=== PATIENT | female | born 1960 | race Caucasian/White ===

== ENCOUNTER → 2019-06-29 17:04 | Outpatient (CLI) | payer BC, SELFPAY ==
--- NOTE | ~2019-06-29 | MM_ITS ---
EXAMINATION: MM screening [facility] BI w sheila HISTORY: Screening mammogram TECHNIQUE: Craniocaudal and mediolateral oblique 3-D tomosynthesis images were obtained and synthetic 2-D images were generated. CAD analysis was submitted and interpreted. COMPARISON: 12/23/2017, 11/29/2016, 12/12/2015 BREAST PARENCHYMAL COMPOSITION: The breasts are almost entirely fatty. FINDINGS: Again seen are stable focal asymmetries in the middle third of the central right breast and posterior third of the upper outer quadrant of the left breast. There is no evidence of suspicious m ass, calcification, or architectural distortion to suggest malignancy in either breast. There has bee n no suspicious interval change. IMPRESSION: 1. No mammographic evidence of malignancy. 2. Recommend routine screening mammography in one year. BI-RADS Category 2: Benign finding(s). Reviewed, dictated and finalized at location A.
== END ==
PROVIDERS: Visit Provider Family Medicine
DX: Z12.31 Encounter for screening mammogram for malignant neoplasm of breast (principal)
CPT/HCPCS: 77063; 77067

== ENCOUNTER 2020-02-26 14:30 | Outpatient (RCR) | payer BC, SELFPAY ==
[2020-01-31 14:24] VITALS: BP_SYST 155
--- NOTE | 2020-01-31 15:51 | PTOPEVAL ---
Thank you for referring Whitley Cruz to [facility].? The patient is scheduled to be seen for therapy? 2 x/week for 8 weeks. Please review, sign, date and return this plan of care VINAY. I agree with and certify that the following plan of care is medically necessary. Referring Physician Date Attending Provider: Chirag Rivera PA-C Referring Provider: EddPT Outpatient Evaluation Start: 01/31/20 14:23 Freq: Status: Active Protocol: Document 01/31/20 14:24 KYLAH (Rec: 01/31/20 15:14 KYLAH [id number]) Therapy Assessment Status Assessment Status Assessment Status Evaluation Outpatient Past Medical History Past Medical History Source of Past Medical History Patient,Recalled from Previous Visit, Confirmed with Patient /Family Neurological History Hx Neurological Disorders No Significant History Cardiovascular History Hx Cardiac Disorders No Significant History Respiratory History Hx Sleep Apnea Yes Gastrointestinal History Hx Gall Bladder Disease Yes: gall stones Musculoskeletal History Hx Back Pain Yes HEENT History Hx Other HEENT Disorders Yes: hearing aide Evaluation Information Problem Diagnosis right shoulder and forearm Onset 1 month ago Cause none Subjective Information She denies any injury to her Query Text:As Reported By Patient/ right, but woke with increased Family pain. Reports right arm is a constant ache pain. Denies numbness and tingling. She reports difficulty with lifting and reaching with the right UE. She feels like her arm is broken . She has difficulty sleeping due to pain. 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 Pain Assessment Timing of Pain Assessment Timing of Pain Assessment Assessment Pain Scale Pain Scale Used Numeric (1 - 10) Self Report Pain Assessment Right Arm(s) Reported Pain Level 10 Pain Description Aching Pain Frequency Continuous Lowest Pain Intensity 10 Greatest Pain Intensity 10 Pain Aggravating Factors Exercise/Activity,Lifting, Prolonged Position Pain Behaviors None Pain Score Pain Score 10: Self Report Interventions Used Interventions Used By Clinicians Exercise Pain Relief Interventions Used By Heat,Ice,Medication
--- NOTE | 2020-02-26 15:08 | PTOPEVAL ---
Thank you for referring Whitley Cruz to [facility].? Pt is able to perform all normal work and home activities without increased pain or symptoms. She demonstrates normal shoulder range and strength. She has achieved her therapy goals at this this time. She is indep with her HEP at this time. DC skilled therapy services at this time. Please review, sign, date and return this plan of care VINAY. I agree with and certify that the following plan of care is medically necessary. 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 Subjective Information She reports she is not having Query Text:As Reported By Patient/ any UE pain. States she is Family able to sleep without difficulty or pain. States she has not modified her sleeping due to no longer having pain at night. Denies any numbness or tingling. States her arm does not feel broken anymore. Denies any pain with reaching motion. Denies pain at work. Pain Assessment Timing of Pain Assessment Timing of Pain Assessment Re-assessment Pain Scale Pain Scale Used Numeric (1 - 10) Self Report Pain Assessment Right Arm(s) Reported Pain Level 0 Lowest Pain Intensity 0 Greatest Pain Intensity 0 Pain Score Pain Score 0: Self Report Upper Extremity Range of Motion Scapular/ Shoulder Range of Motion Right Shoulder Flexion - Active 160 Shoulder Extension - Active 38 Shoulder Abduction - Active 160 Shoulder Medial Rotation - Active 70 Shoulder Medial Rotation - Active L1 Query Text:Reach Behind the Back Shoulder Lateral Rotation - Active 85 Shoulder Lateral Rotation - Active C6 Query Text:Reach Behind the Head Scapular/Shoulder Range of Motion demo proper scapulothoracic Comments movement with reaching task Upper Extremity Muscle Strength Testing General Upper Extremity Strength Gross Upper Extremity Strength Comments grossly 5/5 for gila shoulder motion gila middle trap: 3-/5, lower
== END 2020-02-27 07:44 | disposition home or self-care (01) ==
LOC: ANHPT 14:30
PROVIDERS: PCP Family Medicine; Visit Provider Physician Assistant
DX: M25.611 Stiffness of right shoulder, not elsewhere classified (principal); M79.631 Pain in right forearm
CPT/HCPCS: 97014; 97110; 97112; 97140; 97162; G0283

== ENCOUNTER → 2020-08-01 16:02 | Outpatient (CLI) | payer BC, SELFPAY ==
--- NOTE | ~2020-08-01 | MM_ITS ---
EXAMINATION: MM screening [facility] BI w sheila HISTORY: Screening mammogram TECHNIQUE: Craniocaudal and mediolateral oblique 3-D tomosynthesis images were obtained and synthetic 2-D images were generated. CAD analysis was submitted and interpreted. COMPARISON: 06/29/2019, 12/23/2017, 11/21/2016 bilateral digital screening mammogram examinations BREAST PARENCHYMAL COMPOSITION: The breasts are almost entirely fatty. FINDINGS: Stable mild asymmetry. There is no evidence of suspicious mass, calcification, or bi data architect ural distortion to suggest malignancy in either breast. There has been no suspicious interval change. IMPRESSION: 1. No mammographic evidence of malignancy. 2. Recommend routine screening mammography in one year. BI-RADS Category 2: Benign finding(s). Reviewed, dictated and finalized at location A.
== END ==
PROVIDERS: Visit Provider Obstetrics & Gynecology
DX: Z12.31 Encounter for screening mammogram for malignant neoplasm of breast (principal)
CPT/HCPCS: 77063; 77067

== ENCOUNTER → 2021-03-09 14:48 | Outpatient (REF) | payer BC, SELFPAY | LOC: ANHLAB 14:48 | PROVIDERS: PCP Family Medicine; Visit Provider Nurse Practitioner | DX: D49.2 Neoplasm of unspecified behavior of bone, soft tissue, and skin (principal) | CPT/HCPCS: 88305 ==

== ENCOUNTER → 2021-04-02 10:29 | Outpatient (CLI) | payer BC, SELFPAY ==
[2021-04-03 14:05] LABS: SARS-CoV-2 RNA PCR Positive
== END ==
PROVIDERS: PCP Family Medicine; Visit Provider Physician Assistant
DX: U07.1 COVID-19 (principal)
CPT/HCPCS: C9803; U0003; U0005

== ENCOUNTER 2021-09-25 14:49 | Outpatient (CLI) | payer BC, SELFPAY ==
--- NOTE | ~2021-09-25 | US_ITS ---
EXAMINATION: US venous doppler [facility] DATE: 09/25/2021 15:13 INDICATION: Lower limb swelling TECHNIQUE: Grayscale ultrasound images without and with compression and Doppler ultrasound images of the left lower extremity veins were obtained. COMPARISON: None. FINDINGS: The visualized portions of left common femoral vein, profunda (deep) femoral vein, femoral vein, popl iteal vein, peroneal veins, posterior tibial veins, gastrocnemius vein and greater saphenous vein out flow are patent. IMPRESSION: 1. No deep venous thrombosis in the left lower limb. Reviewed, dictated and finalized at location B.
== END 2021-09-25 14:50 | disposition home or self-care (01) ==
PROVIDERS: PCP Family Medicine; Visit Provider Physician Assistant Medical
DX: M79.669 Pain in unspecified lower leg (principal); R60.0 Localized edema
CPT/HCPCS: 93971

== ENCOUNTER → 2021-11-25 16:38 | Outpatient (CLI) | payer BC, SELFPAY ==
--- NOTE | ~2021-11-25 | MM_ITS ---
EXAMINATION: MM screening [facility] BI w sheila HISTORY: Screening TECHNIQUE: Craniocaudal and mediolateral oblique 3-D tomosynthesis images were obtained and synthetic 2-D images were generated. CAD analysis was submitted and interpreted. COMPARISON: Comparison to multiple prior studies sequentially, with oldest reviewed study dated 06/26. BREAST PARENCHYMAL COMPOSITION: There are scattered areas of fibroglandular density. FINDINGS: Bilateral breast asymmetries are stable There is no evidence of suspicious mass, calcificat ion, or architectural distortion to suggest malignancy in either breast. There has been no suspicious interval change. IMPRESSION: 1. No mammographic evidence of malignancy. 2. Recommend routine screening mammography in one year. BI-RADS Category 1: Negative Reviewed, dictated and finalized at location A.
== END ==
PROVIDERS: PCP Obstetrics & Gynecology; Visit Provider Physician Assistant
DX: Z12.31 Encounter for screening mammogram for malignant neoplasm of breast (principal)
CPT/HCPCS: 77063; 77067

== ENCOUNTER 2022-01-07 15:30 | Outpatient (RCR) | payer BC, SELFPAY ==
--- NOTE | 2021-12-18 13:28 | PTOPEVAL1 ---
Assessment and note entered by Demetra Crowley, PT Evaluation Information Diagnosis L leg pain Onset September, Subjective Information pt reports had pain in leg in September, got better and did not come for therapy; then pain came back; did not fall or have any trauma to knee; Reported Pain Level Pain Score Self Report L knee Additional Pain Score Comments reports: pain range of 8-10/10; sore, really painful, can barely walk on it; walking 5 minutes then have to sit down; toss and turn all night with sleeping due to knee pain; educated on use of pillow between knees for side sleeping; knee gives when walking 4 x in past week; Assessment PT Clinical Summary Whitley has the diagnosis of L knee pain; she reports onset in September, then better; now pain increased with knee buckling when she walks-- unsteady with walking and pain in knee increases. 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 Sleeping is disrupted due to knee pain- toss and turn all night. With the evaluation, she has decreased WB on L LE, with lateral tilt of her patella; pain increase with both knee flexion and extension motions; tenderness and spasms over mid to distal quad; decreased strength of L hip and knee with pain increase; decreased 2 minute walking test distance and poor walking pattern. Skilled PT services are indicated to increase L hip and knee strength; modalities to decrease pain and education to improve gait pattern and home exercises. Plan of Care Interventions Gait Training,Hot Pack/Cold Pack,Manual Therapy, Neuro Re-education,Patient/Caregiver Education, Therapeutic Activities,Therapeutic Exercise PT Services Indicated Yes Treatment Frequency and 2x/wk for 3 weeks Duration These treatments will address the objective and functional deficits as defined above. The patient will be advanced safely and appropriately in order for the patient to progress towards his/her prior level of function. Additional exercises will be introduced and as well as a comprehensive home exercise program upon discharge, if needed, ?to ensure carryover of functional gains achieved in the clinic. This treatment plan has been reviewed and agreement upon by the patient.
--- NOTE | 2022-01-07 16:07 | PTOPDC ---
Assessment and note entered by Demetra Crowley, PT Evaluation Information Diagnosis L leg pain Onset September, Subjective Information Whitley reports: leg is better, walking better; not sure if she can return to work or not--has alot of walking to do, but may be able to work part of a day--will talk with her boss about it; have been doing the exercises; therapy has helped her leg; Reported Pain Level Pain Score Self Report L knee pain Additional Pain Score Comments reports pain range of 6-8/10, L patella- little sore, can walk better; only had one time where it buckled, was next to bed, and caught self so did not fall; decrease pain with ice, leukotape put on with therapy; increase pain with walking 15-20 min; can sleep through the night without awakening due to knee pain; pt brought in several of her sisters' knee braces; trial of them and found a patellar support brace that fit her and was comfortable; discussed using PRN with walking at work; also to continue ice and elevation after work to decrease pain. Assessment PT Clinical Summary Whitley has received 4 PT sessions for L knee pain. At the end of the session, I talked with her sister on the phone about pt; she asked about progress, return to work and brace use. Compared to the initial evaluation: pain has decreased from 10 to 8/10 at worst rating; increased reported walking time from 5 to 15-20 minutes; less buckling of her knee--only once; no awakening from sleep due to knee pain; L knee flexion range increased; strength of L hip and knee increased; She has been educated on a home exercise program and has a knee support brace. The goals were partially achieved. Discharge PT services. Plan of Care PT Services Indicated No
== END 2022-01-08 07:39 | disposition home or self-care (01) ==
LOC: ANHPT 15:30
PROVIDERS: PCP Obstetrics & Gynecology; Referring Provider Physician Assistant Medical; Visit Provider Physician Assistant Medical
DX: M79.662 Pain in left lower leg (principal)
CPT/HCPCS: 97014; 97110; 97140; 97161; 97530; G0283

== ENCOUNTER 2022-04-12 01:40 | Day surgery (SDC) | payer BC, SELFPAY ==
[2022-03-26 10:40] VITALS: BMI 43.0
--- NOTE | 2022-04-10 19:57 | PM.HPGS ---
History of Present Illness History of Present Illness Consent: Risks, benefits, and alternatives have been discussed and questions answered. Patient agrees to proceed with procedure. Chief complaint: neoplasm screening, hx of colon polyps Narrative: Whitley Cruz is a 61 year old female referredfor colon cancer screening. She had 2 adenomas removed Five years ago and 10 yrs ago. Review of Systems Review of Systems: All systems reviewed & are unremarkable except as noted in HPI and below PMFSH Past Medical History Medical History Chronic low back pain Pain in left lower leg Rosacea Sleep apnea with use of continuous positive airway pressure (CPAP) Surgical History Surgical History History of back surgery History of corneal transplant S/P cholecystectomy S/P ERCP Family History Family History Other Bladder cancer Cerebrovascular accident Diabetes mellitus Family history of coronary artery disease Social History Social History Smoking status: Never smoker Second hand tobacco smoke exposure: No Alcohol intake: never Substance use: never Substance use type: does not use Living arrangements: with family Additional living arrangements comments: lives with sister Gender identity (if verbalized by the patient): Female Spiritual care concerns: No Agree to blood products: Yes Meds Home Medications and Allergies Home Medications Medication Instructions Recorded Confirmed Type diphenhydramine 25 1 tablet PO Q6H PRN Allergic 09/12/19 03/26/22 History mg-acetaminophen 500 mg tablet Symptoms (Tylenol PM Extra Strength) metronidazole 0.75 % topical cream 1 applic topical BID #45 grams 09/08/21 03/26/22 Rx Allergies Allergy/AdvReac Type Severity Reaction Status Date / Time No Known Allergies Allergy Verified 03/26/22 10:51 Exam Const: General: alert Orientation/consciousness: patient oriented x3 Resp: Auscultation: clear to auscultation bilaterally Cardio: Rhythm: regular rhythm GI: GI Palp: Yes Soft to palpation and No Tenderness to palpation present (GI) Neuro: General: patient oriented x3 Assessment and Plan Assessment and plan (1) Colon cancer screening: Code(s): Z12.11 - Encounter for screening for malignant neoplasm of colon Status: Acute Assessment and Plan: Colonoscopy with possible biopsy or polypectomy or cautery or injection of substances.
[2022-04-12 07:18] VITALS: BP 122/79; PULSE 90; RESP 18; TEMP 36.9; O2SAT 97; BMI 43.2
[2022-04-12] MEDS: LACTATED RINGERS 1,000 ML 150 ML IV CONT (07:27)
--- NOTE | 2022-04-12 08:20 | P.PNAN_ITS ---
Anes - Initial Pre Proc Eval Procedure: Operation Date: 04/12/22 08:30 Proposed Procedures p Screening Colonoscopy - Braden Blancas MD Date/Time: 04/12/22 08:20 Surgeon: Braden Blancas MD Pre Op Diagnosis: neoplasm screening, hx of colon polyps Patient Data Age: 61 Gender: F Height: 1.65 m Weight: 117.9 kg Last Vital Signs Temp 98.4 F 04/12/22 07:18 Pulse 90 04/12/22 07:18 Resp 18 04/12/22 07:18 BP 122/79 04/12/22 07:18 Pulse Ox 97 04/12/22 07:18 O2 Del Method Room Air 04/12/22 07:18 Allergies Allergy/AdvReac Type Severity Reaction Status Date / Time No Known Allergies Allergy Verified 03/26/22 10:51 Home Medications Medication Instructions Recorded Confirmed Type diphenhydramine 25 1 tablet PO Q6H PRN Allergic 09/12/19 03/26/22 History mg-acetaminophen 500 mg tablet Symptoms (Tylenol PM Extra Strength) metronidazole 0.75 % topical cream 1 applic topical BID #45 grams 09/08/21 03/26/22 Rx Patient hx anesthesia problems: none Family hx anesthesia problems: none Results Review: All pre-operative results and documents have been reviewed as part of the pre- operative evaluation. [facility] Past Medical History Medical History Chronic low back pain Pain in left lower leg Rosacea Sleep apnea with use of continuous positive airway pressure (CPAP) Surgical History Surgical History History of back surgery History of corneal transplant S/P cholecystectomy S/P ERCP Family History Family History Other Bladder cancer Cerebrovascular accident Diabetes mellitus Family history of coronary artery disease Social History Social History Smoking status: Never smoker Second hand tobacco smoke exposure: No Alcohol intake: never Substance use: never Substance use type: does not use Living arrangements: with family Additional living arrangements comments: lives with sister Gender identity (if verbalized by the patient): Female Spiritual care concerns: No Agree to blood products: Yes Jennifer - Evcem Final PreProcedure Day of Procedure 04/12/22 08:20 Patient weight: morbidly obese Heart: regular rate and rhythm Lungs: clear to auscultation Airway: Mallampati scale class III Neurological: alert and oriented Last oral intake: >/= 8 hours ASA classification: III Emergent: no Anesthetic plan: proceed Anesthesia type and monitoring: general GIVS and standard monitoring Results Review: All pre-operative results and documents have been reviewed as part of the pre- operative evaluation. Informed Consent: The patient's anesthetic plan and its attendant risks and benefits were discussed with the patient/family/POA. Questions were solicited and answers provided to the satisfaction of the patient/family/POA.
[2022-04-12 08:41] VITALS: BP 140/75; PULSE 70; RESP 20; O2SAT 98
[2022-04-12 08:51] VITALS: BP 141/82; PULSE 64; RESP 19; O2SAT 100
[2022-04-12 09:01] VITALS: BP 177/80; PULSE 65; RESP 18; O2SAT 100
== END 2022-04-12 09:16 | disposition home or self-care (01) ==
PROVIDERS: PCP Physician Assistant; Visit Provider Internal Medicine Gastroenterology
PROC: 0DJD8ZZ Inspection of Lower Intestinal Tract, Via Natural or Artificial Opening Endoscopic (ICD-10-PCS; CPT 45378; principal; 2022-04-12 08:30)
DX: Z12.11 Encounter for screening for malignant neoplasm of colon (principal); K62.89 Other specified diseases of anus and rectum; Z86.010 Personal history of colon polyps; G47.33 Obstructive sleep apnea (adult) (pediatric); E66.01 Morbid (severe) obesity due to excess calories; Z68.41 Body mass index [BMI] 40.0-44.9, adult
CPT/HCPCS: 45378; J2704; J7120

== ENCOUNTER → 2023-03-08 14:31 | Outpatient (CLI) | payer BC, SELFPAY ==
--- NOTE | ~2023-03-08 | MM_ITS ---
EXAMINATION: MM screening [facility] BI w sheila HISTORY: Screening mammogram TECHNIQUE: Craniocaudal and mediolateral oblique 3-D tomosynthesis images were obtained and synthetic 2-D images were generated. CAD analysis was submitted and interpreted. COMPARISON: 11/25/2021, 08/01/2020, 06/29/2019 BREAST PARENCHYMAL COMPOSITION: The breasts are almost entirely fatty. FINDINGS: Stable focal asymmetries are present in the middle third of the central right breast in the posterior third of the upper outer quadrant of the left breast. No suspicious mass, calcification, o r architectural distortion are identified in either breast to suggest malignancy. There has been no s uspicious interval change. IMPRESSION: 1. No mammographic evidence of malignancy. 2. Recommend routine screening mammography in one year. BI-RADS Category 2: Benign finding(s). Reviewed, dictated and finalized at location A. [employer]
== END ==
PROVIDERS: PCP Obstetrics & Gynecology; Visit Provider Obstetrics & Gynecology
DX: Z12.31 Encounter for screening mammogram for malignant neoplasm of breast (principal)
CPT/HCPCS: 77063; 77067

== ENCOUNTER 2023-11-23 13:45 | Outpatient (CLI) | payer BC, SELFPAY ==
--- NOTE | 2023-11-23 13:54 | ECG_ITS ---
Test Date: 2023-11-23 14:00:39 Measurements Intervals Twining Rate: 74 P: 37 WV: 179 QRS: 25 QRSD: 101 T: 40 QT: 356 QTc: 395 Interpretive Statements SINUS RHYTHM No previous ECG available for comparison Electronically Signed On 11-24-2023 14:23:53 CDT by Godwin Alanis M.D.
== END 2023-11-23 13:46 | disposition home or self-care (01) ==
LOC: ANHLAB 13:46
PROVIDERS: PCP Family Medicine; Visit Provider Family Medicine
DX: G47.30 Sleep apnea, unspecified (principal)
CPT/HCPCS: 93005

== ENCOUNTER 2023-12-12 13:43 | Outpatient (CLI) | payer BC, SELFPAY ==
[2023-12-12 15:37] LABS: Urine Cotinine NEGATIVE
[2023-12-12 16:44] LABS: MRSA (PCR) NOT DETECTED (NOT DETECTE)
[2023-12-12 17:47] LABS: Hemoglobin A1C 5.1 % (<5.7)
== END 2023-12-12 13:44 | disposition home or self-care (01) ==
PROVIDERS: PCP Family Medicine; Visit Provider Orthopaedic Surgery
DX: M17.11 Unilateral primary osteoarthritis, right knee (principal); Z01.818 Encounter for other preprocedural examination
CPT/HCPCS: 80307; 83036; 86850; 86900; 86901; 87641

== ENCOUNTER 2023-12-21 02:09 | Day surgery (SDC) | payer BC, SELFPAY ==
--- NOTE | 2023-12-12 13:55 | PC.NURSE ---
Addendum entered by Myesha Siddiqui RN 12/12/23 14:49: Pt also aware of BMI of 40.0 or less to proceed with surgery and pt will be weighed on am of surgery date. Pt and sister both aware, BMI 39.8 today. Original Note: Report to the Outpatient Waiting Room, entrance under the green pavilion located off [facility], at time ___06:00am__on date 12/21/23 . Planned Procedure Time: _07:30am .? Time changes happen often and if your time is changed the preop area will call you the afternoon before. - You and your visitor will be asked to self-screen and do not enter if you have any COVID symptoms. Please call surgeon if you need to reschedule. - A mask is optional within the hospital at this time. Patients may have clear liquids (water, carbonated beverages, clear teas, apple juice) until 3 hours prior to surgery ( 04:30) with a maximum of 20 ounces. - No food from midnight until time of surgery and no smoking Take only the following medications with a SIP of water on the morning of surgery: ____Tylenol as needed DO NOT STOP ANY OF YOUR OTHER PRESCRIPTION MEDICATIONS PRIOR TO SURGERY EXCEPT THE FOLLOWING Medications to discontinue per physician ___Hold all Vitamins, Supplements, Probiotics and Herbs 3 days prior to surgery per Anesthesia Date to take last dose____12/17/[address] Ferguson instructions on her Diclofenac and Fish Oil- they will call when they leave. Scrub per Instructions too. Please no make-up, nail bulgarian, hairspray, perfume, deodorant, or body powder the day of surgery.? No jewelry (including any body piercings) or valuables the day of surgery, leave them at home.? Please take a shower or bath the night before, or the morning of, surgery with an antibacterial soap.? Wear comfortable, loose fitting clothing.? Children are encouraged to wear pajamas. - Jewelry must be removed prior to entering the operating room.? Rings and piercings that are not removed may be cut off. - The hospital will not accept responsibility for valuables.? - Please leave all valuables, including medications, at home the day of surgery. If you are going home after surgery, a licensed street flusher driver must drive you home.? - NO public transportation without another adult if you receive anesthesia. - We recommend that an adult stay with you for 24 hours following discharge. - We also recommend that you do not drive, make important decision, drink alcoholic beverages, or take any drugs that were not prescribed by your health care provider for at least 24 hours after your discharge time. Follow any additional instructions given to you from your surgeon. Scrub according to Dr Ferguson instructions Telephone instructions given to ___patient and asked if any additional questions and then verbalized understanding. Patient advised to call surgeon office or pre surgery nurse liaison [phone] if any additional questions.
[2023-12-12 14:19] VITALS: PULSE 66; RESP 16; TEMP 36.9; O2SAT 98; BMI 39.8
--- NOTE | 2023-12-20 13:26 | PM.IMHP ---
H&P: HPI History of Present Illness Date/Time: 12/20/23 13:26 Chief Complaint: Patient is knee pain right. The pain has been unrelieved by conservative treatment. She would like to proceed with knee replacement surgery. Review of Systems Review of Systems: All systems reviewed & are unremarkable except as noted in HPI and below [facility] Past Medical History Medical History (Updated 11/23/23 @ 21:07 by Ana Navarro MD) Chronic low back pain Pain in left lower leg Rosacea Sleep apnea with use of continuous positive airway pressure (CPAP) Surgical History Surgical History History of back surgery History of corneal transplant S/P cholecystectomy S/P ERCP Family History Family History Father , Liver cancer Heart disease Mother A-fib Diabetes mellitus Sibling Diabetes mellitus Other Bladder cancer Cerebrovascular accident Family history of coronary artery disease Social History Social History Smoking status: Never smoker Second hand tobacco smoke exposure: No Alcohol intake: never Substance use: never Substance use type: does not use Do You Feel Safe in your Home?: Yes Lack of Transportation: No Lack of Food: Never True Current Housing: I Have Housing Concerned About Future Housing: Decline to Answer Difficulty Paying Gas/Electric Bills: Decline to Answer Difficulty Paying for Meds: Decline to Answer Currently Unemployed: Decline to Answer Education: Decline to Answer Difficulty w/ Childcare or Family Care: Decline to Answer Living arrangements: with family Additional living arrangements comments: Sister Kavita Occupation/Education: occupation Additional occupation/education comments: mail delivery Gender identity (if verbalized by the patient): Female Spiritual care concerns: No Agree to blood products: Yes Meds Home Medications and Allergies Home Medications Medication Instructions Recorded Confirmed Type diphenhydramine 25 1 tablet PO QHS PRN Sleep 05/04/23 12/12/23 History mg-acetaminophen 500 mg tablet (Tylenol PM Extra Strength) diclofenac sodium 75 mg See Rx Instructions .Route 10/10/23 12/12/23 Rx tablet,delayed release .COMPLEX #180 tabs acetaminophen 500 mg tablet 500 mg PO DAILY 12/12/23 12/12/23 History docosahexaenoic acid (dha)-epa 1 cap PO DAILY 12/12/23 12/12/23 History capsule ibuprofen 125 mg-acetaminophen 250 2 tablet PO DAILY PRN Pain 12/12/23 12/12/23 History mg tablet prednisolone acetate 1 % eye 1 drp RIGHT EYE DAILY 12/12/23 12/12/23 History drops,suspension atorvastatin 10 mg tablet 10 mg PO DAILY #90 tabs 12/14/23 Rx rivaroxaban 10 mg tablet (Xarelto) 10 mg PO DAILY PE Prophylaxis s/p 12/20/23 Rx joint replacement surgery 10 days #10 tabs Allergies Allergy/AdvReac Type Severity Reaction Status Date / Time No Known Allergies Allergy Verified 12/12/23 14:04 Exam Narrative: On exam the patient is very obese. She has motion of her knees from about 3 to 110?. Varus deformity grinding crepitus and pain with manipulation. Neurologically she is intact. She walks with an antalgic gait. Eyes: General: appearance normal, both eyes and all related structures Neck: Neck: supple Resp: Effort & Inspection: normal respiratory effort Cardio: Rate: regular rate Rhythm: regular rhythm Radiology Reports: Comments: Patient: Whitley Cruz Results of Diagnostic Exam (Interpreted Today) Order: 11/03/23 07:11 XR knee BI 3V Routine Interpretation: AP lateral skyline view both knees demonstrate [id number] arthritis medially and varus deformity. No fractures, lesions, or masses are appreciated. This report may have been done utilizing a voice recognit
[2023-12-21] VITALS (14 sets, daily range): BP systolic 90–119; BP diastolic 45–60; PULSE 60–91; RESP 12–18; TEMP 36–36.9; O2SAT 96–100
--- NOTE | ~2023-12-21 | XR_ITS ---
EXAMINATION: [id number] DATE: 12/21/2023 10:29 INDICATION: Right knee arthroplasty. Postop. TECHNIQUE: 2 views of right knee were obtained. COMPARISON: None. FINDINGS: There is a total right knee arthroplasty with patellar resurfacing in near-anatomic alignme nt. No acute fracture. There is an old healed fracture of fibular diaphysis. There is gas in the soft tissues, consistent with recent surgery. Anterior skin paulina are noted. IMPRESSION: 1. Total right knee arthroplasty in near-anatomic alignment. Reviewed, dictated and finalized at location A.
--- NOTE | 2023-12-21 06:54 | WPDHPUPDATE1 ---
History and Physical Update Update Date/Time: 12/21/23 06:54 History and Physical has been reviewed, including an updated exam of the patient. There are NO changes in the patient's condition. Risks, benefits, and alternatives have been discussed and questions answered. Patient agrees to proceed with procedure.
[2023-12-21] MEDS: VANCOMYCIN 1,500 MG/NS 500 ML BAG 250 MG IVPB (07:00)
--- NOTE | 2023-12-21 07:02 | WPDANESEPPF ---
Anes - Initial Pre Proc Eval Procedure: Operation Date: 12/21/23 07:30 Proposed Procedures p Right Total Knee Arthroplasty - Luis F Ferguson MD Date/Time: 12/21/23 07:02 Surgeon: Luis F Ferguson MD Pre Op Diagnosis: O A Rt Knee Patient Data Age: 63 Gender: F Height: 1.59 m Weight: 100.4 kg Last Vital Signs Temp 36.9 C 12/12/23 14:19 Pulse 66 12/12/23 14:19 Resp 16 12/12/23 14:19 Pulse Ox 98 12/12/23 14:19 O2 Del Method Room Air 12/12/23 14:19 Allergies Allergy/AdvReac Type Severity Reaction Status Date / Time No Known Allergies Allergy Verified 12/12/23 14:04 Home Medications Medication Instructions Recorded Confirmed Type diphenhydramine 25 1 tablet PO QHS PRN Sleep 05/04/23 12/12/23 History mg-acetaminophen 500 mg tablet (Tylenol PM Extra Strength) diclofenac sodium 75 mg See Rx Instructions .Route 10/10/23 12/12/23 Rx tablet,delayed release .COMPLEX #180 tabs acetaminophen 500 mg tablet 500 mg PO DAILY 12/12/23 12/12/23 History docosahexaenoic acid (dha)-epa 1 cap PO DAILY 12/12/23 12/12/23 History capsule ibuprofen 125 mg-acetaminophen 250 2 tablet PO DAILY PRN Pain 12/12/23 12/12/23 History mg tablet prednisolone acetate 1 % eye 1 drp RIGHT EYE DAILY 12/12/23 12/12/23 History drops,suspension atorvastatin 10 mg tablet 10 mg PO DAILY #90 tabs 12/14/23 Rx rivaroxaban 10 mg tablet (Xarelto) 10 mg PO DAILY PE Prophylaxis s/p 12/20/23 Rx joint replacement surgery 10 days #10 tabs Patient hx anesthesia problems: none Family hx anesthesia problems: none Results Review: All pre-operative results and documents have been reviewed as part of the pre-operative evaluation. [facility] Past Medical History Medical History Chronic low back pain Pain in left lower leg Rosacea Sleep apnea with use of continuous positive airway pressure (CPAP) Surgical History Surgical History History of back surgery History of corneal transplant S/P cholecystectomy S/P ERCP Family History Family History Father , Liver cancer Heart disease Mother A-fib Diabetes mellitus Sibling Diabetes mellitus Other Bladder cancer Cerebrovascular accident Family history of coronary artery disease Social History Social History Smoking status: Never smoker Second hand tobacco smoke exposure: No Alcohol intake: never Substance use: never Substance use type: does not use Do You Feel Safe in your Home?: Yes Lack of Transportation: No Lack of Food: Never True Current Housing: I Have Housing Concerned About Future Housing: Decline to Answer Difficulty Paying Gas/Electric Bills: Decline to Answer Difficulty Paying for Meds: Decline to Answer Currently Unemployed: Decline to Answer Education: Decline to Answer Difficulty w/ Childcare or Family Care: Decline to Answer Living arrangements: with family Additional living arrangements comments: Sister Kavita Occupation/Education: occupation Additional occupation/education comments: mail delivery Gender identity (if verbalized by the patient): Female Spiritual care concerns: No Agree to blood products: Yes Anes - Eval Final PreProcedure Day of Procedure 12/21/23 07:02 Patient weight: morbidly obese Heart: regular rate and rhythm Lungs: clear to auscultation Airway: Mallampati scale class II Neurological: alert and oriented Last oral intake: >/= 8 hours ASA classification: III Emergent: no Anesthetic plan: proceed Anesthesia type and monitoring: general LMA and standard monitoring Results Review: All pre-operative results and documents have been reviewed as part of the pre-operative evaluation. Informed Consent:
[2023-12-21] MEDS: LACTATED RINGERS 1,000 ML 30 ML IV CONT ×2 (07:15→09:50)
[2023-12-21] MEDS: TRANEXAMIC ACID 1,000MG/ISO100 1,000 MG/100 ML BAG 200 MG IVPB (07:15)
[2023-12-21] MEDS: ACETAMINOPHEN 500 MG TABLET 1000 MG PO (07:15)
[2023-12-21] MEDS: ceFAZolin 2 GM/D5W 50 ML 2 GM/50 ML BAG IVPB ×3 (07:31→22:26)
[2023-12-21] MEDS: SODIUM CHLORIDE 0.9% IV 37.7 ML, MORPHINE SULFATE INJ (*CRX) 2 MG, ROPivacaine HCL 1% 2... INFILTRATE (08:03)
--- NOTE | 2023-12-21 09:14 | P.OP_ITS ---
Procedure Note - Detailed Date of Procedure 12/21/23 Pre-op Diagnosis Osteoarthritis RIGHT Knee Post-op Diagnosis Same Procedure Performed RIGHT total knee arthroplasty Surgeon Luis F Ferguson MD Rug [employer]ter [place] [facility] Vera Anesthesia General Indications Pain and Arthritis Description of Procedure The patient was brought to operating room #7. A general anesthetic was administered. Placed on the operating table and sterilely prepped and draped in usual manner. A longitudinal incision was made. Tourniquet inflated to 300 mmHg for a total of 60 minutes. Dissection was carried down to the fascia. Medial parapatellar incision was made and the patella subluxated laterally. Patella cut from 21 to 14 mm and sized for a 34 mm button. The tibia was cut perpendicular to the long axis and femur cut in 5 degrees of valgus. A 60 femur trialed. 63 tibia was felt to fit the best. The soft tissues balanced, hemostasis obtained. All [address], 63 tibia, 60 femur, 34 mm patella, and 12 mm poly. Motion was 0-125 degrees with good stability in both flexion and extension. The wound was closed with #2 Vicryl, 2-0 Vicryl and paulina. [employer]plants [employer] Estimated Blood Loss 200 Drains No Packing No Pathology None sent Complications No immediate complications Condition Stable Disposition PACU [facility] Billing Surgery - Charge Forward: Surgery Billing ([id number] Total Knee)
[2023-12-21] MEDS: fentaNYL CITRATE INJ (*CRX) 100 MCG/2 ML VIAL 25 MCG IV PUSH ×2 (10:49→10:53)
--- NOTE | 2023-12-21 11:28 | ADMGEN ---
This patient, Whitley Cruz, was admitted to [facility] Surg Room 310-01. Patient/family oriented to hospital policies and general routines including ID bracelet, bed and alarms, visiting hours, pain management, procedures, bathroom and other care routines, personal items, smoking policy, room service/diet, and visiting hours. Information on how to activate the Rapid Response Team has been discussed. Patient/Family are encouraged to report perceived risks to care and to ask questions if they do not understand what they are told or what they should do.
[2023-12-21] MEDS: SODIUM CHLORIDE 0.9% IV 1,000 ML 125 ML IV CONT (11:45)
[2023-12-21] MEDS: HYDROmorphone HCL INJ (*CRX) 1 MG/ML SYR IV PUSH (12:21)
[2023-12-21] MEDS: ONDANSETRON INJ 4 MG/2 ML VIAL IV PUSH (13:37)
--- NOTE | 2023-12-21 13:55 | WPDCN ---
Assessment and Plan Assessment and plan (1) Osteoarthritis of right knee: Code(s): M17.11 - Unilateral primary osteoarthritis, right knee Status: Acute Assessment and Plan: Postoperative day 0 status post right total knee arthroplasty. Wound care, pain control, DVT prophylaxis deferred to Dr. Ferguson. Blood pressures have been running at the lower end of normal and are being monitored. (2) Low blood pressure reading: Code(s): R03.1 - Nonspecific low blood-pressure reading Status: Acute Assessment and Plan: Blood pressure has been as low as 96/58 postoperatively though she is asymptomatic. May very well be related to anesthesia and pain medications. Check CBC and BMP and continue to monitor closely. (3) Obstructive sleep apnea on CPAP: Code(s): G47.33 - Obstructive sleep apnea (adult) (pediatric) Status: Acute Assessment and Plan: CPAP will be provided for the patient to use while hospitalized. (4) Hyperlipidemia: Code(s): E78.5 - Hyperlipidemia, unspecified Status: Acute Assessment and Plan: Continue statin check LFTs in a.m. Plan Thank you for allowing us to participate in this patient's care. Please do not hesitate to contact us with any questions. HPI Data of Consult Date/Time: 12/21/23 14:30 Requesting Physician: Luis F Ferguson MD Primary Care Provider: Ana Navarro MD Consult Narrative Reason for consult: Medical management. Narrative: This is a 63-year-old female who presented today for an elective right total knee arthroplasty due to ongoing pain in that knee despite conservative outpatient treatment. Her surgery was performed under general anesthesia with immediate complications documented an estimated blood loss of 200 mL. She reports feeling lightheaded and woozy when she got up to the bathroom following surgery and had 1 episode of emesis. She is feeling much better now but has not been up much since that time. Pain is pretty well controlled. She denies fever, chills, sweats, chest pain, and shortness of breath. She also denies paresthesias, skin color, and temperature changes distal to the surgical site. On discharge she will be going home where she lives with her sister who will help care for her. The hospitalist service has been consulted for help managing her medical conditions which are significant for obstructive sleep apnea on CPAP and hyperlipidemia for which she is on a statin. She is compliant with her CPAP and believes her hyperlipidemia is well controlled. Review of Systems Review of Systems: 12 systems were reviewed and are negative except for as per HPI. [facility] Past Medical History Medical History (Updated 12/21/23 @ 16:17 by Tiffanie Heath PA-C) Chronic low back pain Hyperlipidemia Obstructive sleep apnea on CPAP Rosacea Surgical History Surgical History (Updated 12/21/23 @ 13:58 by Tiffanie Heath PA-C) History of arthroplasty of right knee (12/21/23) History of back surgery History of cholecystectomy History of corneal transplant History of endoscopic retrograde cholangiopancreatography Family History Family History Father , Liver cancer Heart disease Mother A-fib Diabetes mellitus Sibling Diabetes mellitus Other Bladder cancer Cerebrovascular accident Family history of coronary artery disease Social History Social History (Updated 12/21/23 @ 13:59 by Tiffanie Heath PA-C) Social History: Surrogate medical decision maker: Christy Vázquezer, sister. Code status: Full code. Smoking status: Never smoker Second hand tobacco smoke exposure: No Alcohol intake: never Substance use: never Substance use type: does not use Do You Feel Safe in your Home?: Yes Lack of Transportation: No Lack of Food: Never True Current Housing: I Have Housing Concerne
[2023-12-21 17:15] LABS: Hemoglobin 10.4 g/dL (12.0-15.0); Mean Corpuscular HGB Conc 31.5 g/dl (32-36); Mean Corpuscular Hemoglobin 32.3 pg (26-34); Mean Corpuscular Volume 102.5 fl (80-100); Mean Platelet Volume 10.3 fl (7.4-10.4); Platelet Count Result 197 k/mm3 (150-375); Red Blood Count 3.22 M/mm3 (4.2-5.4); Red Cell Distribution Width 12.5 % (11.5-14.5); White Blood Count 11.2 K/mm3 (4.5-10.0)
[2023-12-21 17:20] LABS: Anion Gap 8 mmol/L (4-12); Blood Urea Nitrogen 26 mg/dL (7-17); Calcium 8.8 mg/dL (8.4-10.2); Carbon Dioxide 26 mmol/L (22-30); Chloride 103 mmol/L (98-107); Estimated CRCL calculation 55 ml/min; Estimated Glomerular Filt Rate 56; Glucose 137 mg/dL (65-110); Potassium 4.2 mmol/L (3.4-5.0); Sodium 137 mmol/L (137-145)
[2023-12-21] MEDS: RIVAROXABAN 10 MG TABLET PO (17:56)
[2023-12-21] MEDS: SENNA/DOCUSATE SODIUM TABLET 2 TAB PO (17:56)
[2023-12-21] MEDS: CELECOXIB 200 MG CAPSULE PO (17:56)
[2023-12-21] MEDS: SODIUM CHLORIDE 0.9% IV 500 ML 999 ML IV CONT (20:16)
[2023-12-21] MEDS: CYCLOBENZAPRINE HCL 10 MG TABLET PO (22:26)
[2023-12-21] MEDS: HYDROcodone/acetaminophen (*CRX) 7.5-325 MG TABLET 1 TAB PO (22:26)
[2023-12-22 04:00] VITALS: BP 110/60; PULSE 63; RESP 16; TEMP 36.5; O2SAT 94
[2023-12-22] MEDS: ceFAZolin 2 GM/D5W 50 ML 2 GM/50 ML BAG IVPB (06:18)
--- NOTE | 2023-12-22 06:50 | PM.PNORT ---
Progress Note: A&P Assessment and Plan (1) History of knee replacement procedure of right knee: Code(s): Z96.651 - Presence of right artificial knee joint Status: Acute Assessment and Plan: Patient underwent total knee arthroplasty right. Overall she is doing fine. Will ambulate today and dismissed home. Follow-up 10-14 days for sutures out. Subjective Subjective Date/Time Seen: 12/22/23 06:50 Post Op day: 1 Principal diagnosis: Osteoarthritis right knee status post total knee arthroplasty Review of Systems Review of Systems: All systems reviewed & are unremarkable except as noted in HPI and below Exam Narrative: Patient is dressing is intact should wiggle her toes able ambulate. The pain is under control. Objective Data Vital Signs Vital Signs: Vital Signs - 24 hr 12/21/23 07:15 12/21/23 09:50 12/21/23 10:05 Temperature 97 F L 97.9 F Pulse Rate 66 91 77 Respiratory Rate 14 18 12 Blood Pressure 114/46 L 119/58 L 117/60 Pulse Oximetry 100 100 100 Oxygen Delivery Room Air Simple Face Mask Simple Face Mask Oxygen Flow Rate 8 8 12/21/23 10:20 12/21/23 10:35 12/21/23 10:50 Temperature Pulse Rate 88 67 66 Respiratory Rate 16 16 12 Blood Pressure 107/58 L 110/52 L 96/58 L Pulse Oximetry 100 100 100 Oxygen Delivery Room Air Room Air Room Air Oxygen Flow Rate 12/21/23 11:00 12/21/23 13:16 12/21/23 13:38 Temperature Pulse Rate 74 Respiratory Rate 18 Blood Pressure 101/45 L Pulse Oximetry 96 Oxygen Delivery Room Air Room Air Room Air Oxygen Flow Rate 12/21/23 11:01 12/21/23 11:16 12/21/23 11:46 Temperature 96.8 F L 96.9 F L 97.1 F L Pulse Rate 83 76 60 Respiratory Rate 16 16 16 Blood Pressure 100/51 L 107/48 L 107/55 L Pulse Oximetry 97 97 98 Oxygen Delivery Oxygen Flow Rate 12/21/23 12:46 12/21/23 16:00 12/21/23 20:00 Temperature 97.4 F L 97.8 F 98.3 F Pulse Rate 81 63 79 Respiratory Rate 16 16 14 Blood Pressure 98/56 L 90/48 L 100/58 L Pulse Oximetry 100 98 97 Oxygen Delivery Oxygen Flow Rate 12/21/23 20:38 12/21/23 23:54 12/22/23 04:00 Temperature 98.5 F 97.7 F Pulse Rate 72 63 Respiratory Rate 14 16 Blood Pressure 109/55 L 110/60 Pulse Oximetry 97 94 Oxygen Delivery CPAP Oxygen Flow Rate Intake/Output Intake/Output: Intake & Output 12/19/23 12/20/23 12/21/23 12/22/23 23:59 23:59 23:59 23:59 Intake Total 2230 500 Balance 2230 500 Meds/Results Medications: Active Medications Generic Name Dose Route Start Last Admin Trade Name Freq PRN Reason Stop Dose Admin Hydrocodone Bitart/Acetaminophen 1 tab 12/21/23 11:01 Hydrocodone/Acetaminophen (*Crx) 5-325 Mg Tablet PO Q4H PRN Pain Rated 4-6 Hydrocodone Bitart/Acetaminophen 1 tab 12/21/23 11:01 12/21/23 22:26 Hydrocodone/Acetaminophen (*Crx) 7.5-325 Mg Tablet PO 1 tab Q4H PRN Administration Pain Rated 7-10 Celecoxib 200 mg 12/21/23 17:00 12/21/23 17:56 Celecoxib 200 Mg Capsule PO 200 mg BIDWM CARLIE Administration Cyclobenzaprine HCl 10 mg 12/21/23 11:01 12/21/23 22:26 Cyclobenzaprine Hcl 10 Mg Tablet PO 10 mg Q8H PRN Administration Spasms Diphenhydramine HCl 25 mg 12/21/23 11:01 Diphenhydramine Hcl Inj 50 Mg/Ml Vial IV PUSH Q6H PRN Itching Hydromorphone HCl 1 mg 12/21/23 11:01 12/21/23 12:21 Hydromorphone Hcl Inj (*Crx) 1 Mg/Ml Syr IV PUSH 1 mg Q2H PRN Administration Breakthrough Pain Rated 7-10 or NPO Hydromorphone HCl 0.5 mg 12/21/23 11:01 Hydromorphone Hcl Inj (*Crx) 1 Mg/Ml Syr IV PUSH Q2H PRN Breakthrough Pain Rated 4-6 or NPO Cefazolin Sodium 2 gm in 50 mls @ 100 mls/hr 12/21/23 15:00 12/22/23 06:18 Ancef 2 Gm/D5w 50 Ml IVPB 12/22/23 07:29 100 mls/hr Q8H CARLIE Administration Ibuprofen 800 mg in 200 mls @ 400 mls/hr 12/21/23 11:01 Caldolor 800 Mg/200 Ml IVPB Q6H PRN Breakthrough Pain Rated 1-3 or [employer]
--- NOTE | 2023-12-22 06:52 | PM.DS ---
DS: Admitting Diagnosis Discharge Date 12/22/2023 Admitting Diagnosis Osteoarthritis right knee DS: Discharge Diagnosis Discharge Diagnosis (1) History of knee replacement procedure of right knee: Code(s): Z96.651 - Presence of right artificial knee joint Status: Acute Assessment and Plan: Right total knee arthroplasty for osteoarthritis of the right knee. DS: Summary Hospital Course Hospital Course: Patient underwent total knee arthroplasty for osteoarthritis of the right knee. She has done well postoperatively and can be dismissed home today. If she has any changes or problems she will call. Anticipate follow-up 10-14 days for sutures out. She can put full weight on it. She is instructed to call if she has any issues. Time Spent with Patient Time attestation: Total time spent providing and/or coordinating discharge services: Exam Narrative: On exam the dressing is intact she is wiggling her toes. She can ambulate well. Eyes: General: appearance normal, both eyes and all related structures Neck: Neck: supple Resp: Effort & Inspection: normal respiratory effort Cardio: Rate: regular rate Rhythm: regular rhythm DS: Data Data Completed and Pending Labs on day of discharge: Labs from last 24 hours 12/21/23 17:03 WBC 11.2 H RBC 3.22 L Hgb 10.4 L Hct 33.0 L MCV 102.5 H MCH 32.3 MCHC 31.5 L RDW 12.5 Plt Count 197 MPV 10.3 Sodium 137 Potassium 4.2 Chloride 103 Carbon Dioxide 26 Anion Gap 8 BUN 26 H Creatinine 1.00 Estim Creat Clear Calc 55 Estimated GFR 56 L Glucose 137 H Calcium 8.8 Discharge Plan Discharge Patient Disposition: Home, Self-Care Discharge Instructions: Dr. Luis F Ferguson M.D [address] [address] POST-OPERATIVE DISCHARGE INSTRUCTIONS TOTAL KNEE ARTHROPLASTY 1. When resting, do not rest in the chair.When resting, lie on your back, with back flat on the couch or bed, with leg elevated above heart to minimize swelling. You may put a pillow under your head. . Significant swelling could indicate a blood clot and if this occurs call the office (or go to the ER) to have a venous ultrasound. Therefore, do not rest in a chair. 2. At least five times a day spend several minutes stretching your knee into flexion while sitting in the chair and also stretching your knee out straight The abilities to bend your knee fulling and straighten your knee fully are two most important knee functions to focus on during your recovery. 3. It is ok to sit in chair to eat, use the toilet and receive a guest and to do your stretching exercises, but, sitting in a chair will cause your leg to swell. Therefore, avoid additional time sitting in the chair. and don't rest in the chair. 4. Wound Care: Nursing will give you an additional Mepilex dressing at the time of discharge. Patient to remove the dressing and apply a new Mepilex dressing at home 7 days after surgery and leave the dressing on until seen in office. 5. May shower with a Mepilex dressing in place.The water will run off the dressing. 6. Unless you are told otherwise, you may put full weight on your operated leg. Use a walker for balance and practice walking as normally as you can, ideally for a few minutes every hour while you are awake. 7. I would advise against putting ice packs on your knee incision. Ice constricts blood flow which can impar healing of the knee incision. IMPORTANT: Remember not to sit in the chair for more than 30 minutes at a time. As a rule, during the first 14 days after surgery, only sit in the chair to work on the chair knee bending stretch exercise, for meals or for use of the restroom. Sitting in the chair promotes significant swelling in the knee and leg which will make your knee stiff and more painful and which simulates having a blood clot in the veins of the leg. If this type of significant diffuse swelling occ
[2023-12-22 07:28] LABS: Basophils Percent Auto 0.4 % (0.2-1.2); Eosinophils Percent Auto 0.5 % (0-4.4); Hematocrit 30.1 % (37.0-47.0); Hemoglobin 9.2 g/dL (12.0-15.0); Immature Granulocyte Absolute 0.03 K/mm3 (0.00-0.031); Immature Granulocyte Percent A 0.4 % (0-0.5); Lymphocytes Absolute Auto 1.53 K/mm3 (0.9-3.2); Mean Corpuscular HGB Conc 30.6 g/dl (32-36); Mean Corpuscular Hemoglobin 31.7 pg (26-34); Mean Corpuscular Volume 103.8 fl (80-100); Mean Platelet Volume 10.2 fl (7.4-10.4); Monocytes Percent Auto 12.4 % (2.6-8.5); Neutrophils Absolute Auto 5.1 K/mm3 (1.3-6.7); Neutrophils Percent Auto 66.3 % (45.5-73.1); Platelet Count Result 173 k/mm3 (150-375); Red Cell Distribution Width 12.8 % (11.5-14.5); White Blood Count 7.6 K/mm3 (4.5-10.0)
[2023-12-22 07:39] LABS: Alanine Aminotransferase 54 U/L (6-35); Alkaline Phosphatase 58 U/L (38-126); Anion Gap 5 mmol/L (4-12); Aspartate Amino Transferase 42 U/L (14-36); Bilirubin,Total 0.5 mg/dL (0.2-1.3); Blood Urea Nitrogen 17 mg/dL (7-17); Calcium 8.3 mg/dL (8.4-10.2); Carbon Dioxide 26 mmol/L (22-30); Chloride 105 mmol/L (98-107); Estimated CRCL calculation 64 ml/min; Estimated Glomerular Filt Rate > 60; Glucose 105 mg/dL (65-110); Magnesium 1.7 mg/dL (1.6-2.3); Potassium 3.8 mmol/L (3.4-5.0); Sodium 136 mmol/L (137-145)
[2023-12-22 08:00] VITALS: BP 120/47; PULSE 73; RESP 14; TEMP 36.4; O2SAT 99
[2023-12-22] MEDS: CELECOXIB 200 MG CAPSULE PO (08:23)
[2023-12-22] MEDS: polyethylene glycoL 3350 17 GM POWD.PACK PO (08:24)
[2023-12-22] MEDS: SENNA/DOCUSATE SODIUM TABLET 2 TAB PO (08:24)
[2023-12-22 08:43] VITALS: BP 130/53; PULSE 95; RESP 14; TEMP 36.4; O2SAT 100
[2023-12-22] MEDS: HYDROcodone/acetaminophen (*CRX) 7.5-325 MG TABLET 1 TAB PO (09:00)
--- NOTE | 2023-12-22 09:50 | PM.IMPN ---
Progress Note: A&P Assessment and Plan (1) Osteoarthritis of right knee: Code(s): M17.11 - Unilateral primary osteoarthritis, right knee Status: Acute Assessment and Plan: Postoperative day 1 status post right total knee arthroplasty. Wound care, pain control, DVT prophylaxis deferred to Dr. Ferguson. Patient to discharge home today after physical therapy. (2) Low blood pressure reading: Code(s): R03.1 - Nonspecific low blood-pressure reading Status: Acute Assessment and Plan: Blood pressure has been as low as 96/58 postoperatively though she was asymptomatic. BP improved now to 130/53. Encourage hydration. (3) Obstructive sleep apnea on CPAP: Code(s): G47.33 - Obstructive sleep apnea (adult) (pediatric) Status: Acute Assessment and Plan: CPAP will be provided for the patient to use while hospitalized. (4) Hyperlipidemia: Code(s): E78.5 - Hyperlipidemia, unspecified Status: Acute Assessment and Plan: 12/09/23 Cholesterol 232, LDL 152, Non-HDL 173, Triglycerides 99. 12/22/23 AST 42, ALT 54 - Continue statin Plan Thank you for allowing us to participate in this patient's care. Please do not hesitate to contact us with any questions. Subjective Date/time seen: 12/22/23 09:50 Interval history: This is a 63-year-old female who presented today for an elective right total knee arthroplasty due to ongoing pain in that knee despite conservative outpatient treatment. Her surgery was performed under general anesthesia with immediate complications documented an estimated blood loss of 200 mL. She reports feeling lightheaded and woozy when she got up to the bathroom following surgery and had 1 episode of emesis. Patient reports getting up this morning with occupational therapy this morning but has not had physical therapy yet today. Patient reports pain in right knee is an 8 , constant, and aching. She denies fever, chills, sweats, chest pain, and shortness of breath. She also denies paresthesias, skin color, and temperature changes distal to the surgical site. On discharge she will be going home where she lives with her sister who will help care for her. Sister will drive patient to therapy. The hospitalist service has been consulted for help managing her medical conditions which are significant for obstructive sleep apnea on CPAP and hyperlipidemia for which she is on a statin. She is compliant with her CPAP and believes her hyperlipidemia is well controlled. Review of Systems Review of Systems: 12 systems were reviewed and are negative except for as per HPI. Exam Narrative: General: Well-developed, nontoxic-appearing female sitting up in bed in no distress. Weight: 104.7 kg. BMI: 41.5. HEENT: PERRL, EOMI. Sclera anicteric. Oral mucosa moist. Neck: Supple. Respiratory: Lungs are clear to auscultation bilaterally. Cardiovascular: Regular rate and rhythm with S1-S2. Gastrointestinal: Abdomen is soft, nontender, and nondistended with positive bowel sounds. Skin: Warm and dry. No rash or lesions on limited exam. Extremities: No cyanosis, clubbing, or edema. Radial and pedal pulses intact. Musculoskeletal: Right knee dressing is clean, dry, and intact. Neurological: Alert. Cranial nerves 2-12 grossly intact. No gross focal deficits to casual conversation. Psychiatric: Pleasant and cooperative with normal mood and affect. Judgment and insight intact. Skin: Other: Dressing and wrap intact to right leg. No drainage noted. Objective Data Vital Signs Vital Signs: Vital Signs - 24 hr 12/21/23 10:05 12/21/23 10:20 12/21/23 10:35 Temperature Pulse Rate 77 88 67 Respiratory Rate 12 16 16 Blood Pressure 117/60 107/58 L 110/52 L Pulse Oximetry 100 100 100 Oxygen Delivery Simple Face Mask Room Air Room Air Oxygen Flow Rate 8 12/21/23 10:50 12/21/23 11:00 12/21/23 13:16 Temperature Pulse Rate
== END 2023-12-22 11:51 | disposition home or self-care (01) ==
LOC: ANHSURGERY 05:56 → ANH3MEDSUR 11:06
PROVIDERS: Physician Assistant; PCP Family Medicine; Visit Provider Orthopaedic Surgery
PROC: (CPT 27447; principal; 2023-12-21 07:30)
DX: M17.11 Unilateral primary osteoarthritis, right knee (principal); E78.5 Hyperlipidemia, unspecified; G47.33 Obstructive sleep apnea (adult) (pediatric); R03.1 Nonspecific low blood-pressure reading; G89.29 Other chronic pain; M54.50 Low back pain, unspecified; E66.01 Morbid (severe) obesity due to excess calories; Z68.41 Body mass index [BMI] 40.0-44.9, adult; Z79.1 Long term (current) use of non-steroidal anti-inflammatories (NSAID); Z79.01 Long term (current) use of anticoagulants; Z99.89 Dependence on other enabling machines and devices; Z98.890 Other specified postprocedural states; Z90.49 Acquired absence of other specified parts of digestive tract; Z98.1 Arthrodesis status; Z80.0 Family history of malignant neoplasm of digestive organs; Z80.52 Family history of malignant neoplasm of bladder; Z82.49 Family history of ischemic heart disease and other diseases of the circulatory system
CPT/HCPCS: 27447; 36415; 73560; 80048; 80076; 83735; 85025; 85027; 97110; 97116; 97161; 97165; 97530; 97535; A9270; C1713; C1776; J0171; J0690; J1100; J1170; J1885; J2250; J2270; J2405; J2704; J2795; J3010; J3370; J7030; J7120

== ENCOUNTER 2024-02-21 14:45 | Outpatient (RCR) | payer BC, SELFPAY ==
--- NOTE | 2023-12-26 14:35 | OPREHPOC ---
Outpatient Therapy Plan of Care This is a Multidisciplinary Plan of Care that may contain components documented by all disciplines (PT, OT, and ST.) PT Problem 1 PT Problem #1 Knowledge Deficit PT Goal 1 Goal / Goal Update Pt to be IND with issued HEP Target Visit 4 PT Problem 2 PT Problem #2 Pain PT Goal 1 Goal / Goal Update Pt to report knee pain no greater than 3/10 in the last week. Target Visit 20 PT Goal 2 Goal / Goal Update Pt to report 75% return to PLOF. Target Visit 20 PT Problem 3 PT Problem #3 Impaired Range of Motion PT Goal 1 Goal / Goal Update Pt to improve passive knee flexion ROM to 110 deg to improve stair ambulation. Target Visit 20 PT Goal 2 Goal / Goal Update Pt to improve passive knee extension ROM to no more than 3 deg to improve stride length with ambulation. Target Visit 20 PT Problem 4 PT Problem #4 Impaired Gait PT Goal 1 Goal / Goal Update Pt to improve 2 min walk distance from 125ft to 350ft to be able to return to work Target Visit 20 PT Goal 2 Goal / Goal Update Pt to ambulate without device on level ground. Target Visit 20
--- NOTE | 2023-12-26 14:35 | PTOPEVAL1 ---
Assessment and note entered by Veronica Matthews, PT, DPT Evaluation Information Assessment Status Evaluation Diagnosis R TKA ICD-10 Condition Codes (PT) Z47.1 Subjective Information Pt had a R TKA on 12/21/23. 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 She lives in a split level home but has a chair lift she is using currently. She states her goal is to get back to normal. Reported Pain Level Pain Score 5: Self Report Assessment PT Clinical Summary Pt presents to therapy today POD 5 from a R TKA. Today she demonstrates s/s consistent with her diagnosis. She has significant limitations in her active and passive ROM, limb swelling, decreased functional knee strength, decreased gait speed, gait deviations, and decreased functional mobility . She ambulates with a significantly decreased speed, requires a walker, and has a shortened stride length gila. Skilled therapy services are indicated to address the deficits noted above, to manage pain, to return to walk, and to improve functional independence. Plan of Care Interventions Electrical Stimulation,Gait Training,Intermittent Compression,Manual Therapy,Neuro Re-education, Patient/Caregiver Educati,Therapeutic Activities, Therapeutic Exercise PT Services Indicated Yes Treatment Frequency and 2-3x/wk for 20 visits Duration These treatments will address the objective and functional deficits as defined above. The patient will be advanced safely and appropriately in order for the patient to progress towards his/her prior level of function. Additional exercises will be introduced and as well as a comprehensive home exercise program upon discharge, if needed, ?to ensure carryover of functional gains achieved in the clinic. This treatment plan has been reviewed and agreement upon by the patient.
--- NOTE | 2024-01-19 16:48 | PTOPPROGNS ---
Assessment and note entered by Veronica Matthews, PT, DPT Evaluation Information Assessment Status Progress Diagnosis R TKA ICD-10 Condition Codes (PT) Z47.1 Subjective Information Pt states she feels like she is progressing well. States she is getting more comfortable with stairs and has just started doing her stairs at home forward vs side harmon. She has progressed to the cane in the last couple of weeks and feels like she is walking better. Still has trouble bending her knee to get in/out of the car. Assessment PT Clinical Summary Pt presents to therapy today for her progress report following 10 visits of skilled therapy to treat her R TKA. She continues to demonstrate significant limitations in her active and passive ROM but this is progressing to 0-6-107 passively. Her gait speed has improved but her speed still places her at an increased risk for falls. She is progressing well towards her therapy goals. Continuation of skilled therapy services are indicated to address the deficits noted above, to manage pain, to return to work, and to improve functional independence. Plan of Care Interventions Electrical Stimulation,Gait Training,Intermittent Compression,Manual Therapy,Neuro Re-education, Patient/Caregiver Educati,Therapeutic Activities, Therapeutic Exercise PT Services Indicated Yes Treatment Frequency and 2x/wk for 20 visits, continue per current POC Duration These treatments will address the objective and functional deficits as defined above. The patient will be advanced safely and appropriately in order for the patient to progress towards his/her prior level of function. Additional exercises will be introduced and as well as a comprehensive home exercise program upon discharge, if needed, ?to ensure carryover of functional gains achieved in the clinic. This treatment plan has been reviewed and agreement upon by the patient.
--- NOTE | 2024-02-21 15:26 | OPREHPOC ---
Outpatient Therapy Plan of Care This is a Multidisciplinary Plan of Care that may contain components documented by all disciplines (PT, OT, and ST.) PT Problem 1 PT Problem #1 Knowledge Deficit PT Goal 1 Goal / Goal Update Pt to be IND with issued HEP 01/19/24: met Target Visit 4 Progress Met PT Problem 2 PT Problem #2 Pain PT Goal 1 Goal / Goal Update Pt to report knee pain no greater than 3/10 in the last week. 01/19/24: progressing Target Visit 20 Progress Met PT Goal 2 Goal / Goal Update Pt to report 75% return to PLOF. 01/19/24: progressing Target Visit 20 Progress Met PT Problem 3 PT Problem #3 Impaired Range of Motion PT Goal 1 Goal / Goal Update Pt to improve passive knee flexion ROM to 110 deg to improve stair ambulation. 01/19/24: progressing to 107 Target Visit 20 Progress Met PT Goal 2 Goal / Goal Update Pt to improve passive knee extension ROM to no more than 3 deg to improve stride length with ambulation. Target Visit 20 Progress Met PT Problem 4 PT Problem #4 Impaired Gait PT Goal 1 Goal / Goal Update Pt to improve 2 min walk distance from 125ft to 350ft to be able to return to work 01/19/24: progressing 240 Target Visit 20 Progress Partially Met PT Goal 2 Goal / Goal Update Pt to ambulate without device on level ground. 01/19/24: progressing Target Visit 20 Progress Met
--- NOTE | 2024-02-21 15:26 | PTOPDC ---
Assessment and note entered by Veronica Matthews, PT, DPT Evaluation Information Assessment Status Discharge Diagnosis R TKA ICD-10 Condition Codes (PT) Z47.1 Subjective Information Pt has been back to work back to work for a week but has been light duty, she starts on Tuesday back to full duty. Pt states she still works on her exercises but still cannot bend her knee the way she knows she should. Reported Pain Level Pain Score 0: Self Report Assessment PT Clinical Summary Pt presents to therapy today for her progress report following 19 visits of skilled therapy to treat her R TKA. Her knee extension ROM has progressed to 0 deg but still only has 108 deg of passive knee flexion. Her gait speed and pattern continues to improve. She has met or progressed well towards all of her therapy goals and no longer requires skilled services. Plan of Care PT Services Indicated No
== END 2024-02-22 09:33 | disposition home or self-care (01) ==
LOC: ANHGOSHPT 14:45
PROVIDERS: PCP Family Medicine; Visit Provider Orthopaedic Surgery
DX: Z96.651 Presence of right artificial knee joint (principal); Z47.1 Aftercare following joint replacement surgery
CPT/HCPCS: 97110; 97112; 97140; 97161; 97530

== ENCOUNTER 2024-03-13 14:51 | Outpatient (CLI) | payer BC, SELFPAY ==
--- NOTE | ~2024-03-13 | MM_ITS ---
EXAMINATION: MM screening alvarado BI w sheila HISTORY: Screening TECHNIQUE: Craniocaudal and mediolateral oblique 3-D tomosynthesis images were obtained and synthetic 2-D images were generated. CAD analysis was submitted and interpreted. COMPARISON: Comparison to multiple prior studies sequentially, with oldest reviewed study dated 11/29. BREAST PARENCHYMAL COMPOSITION: Not dense: There are scattered areas of fibroglandular density. FINDINGS: There is a new focal asymmetry in the upper outer quadrant of the left breast, middle-poste rior depth. The right breast is stable. No evidence for malignancy on the right. IMPRESSION: 1. New focal left breast asymmetry upper outer quadrant. 2. Additional mammographic views and possible breast ultrasound are recommended. BI-RADS Category 0: Incomplete: Needs additional imaging evaluation. Reviewed, dictated and finalized at location B. [employer] WORKER IMPRESSION: 1. New focal left breast asymmetry upper outer quadrant. 2. Additional mammographic views and possible breast ultrasound are recommended . BI-RADS Category 0: Incomplete: Needs additional imaging evaluation.
== END 2024-03-13 14:52 | disposition home or self-care (01) ==
PROVIDERS: PCP Family Medicine; Visit Provider Obstetrics & Gynecology
DX: R92.2 Inconclusive mammogram (principal)
CPT/HCPCS: 77063; 77067

== ENCOUNTER 2024-03-22 13:08 | Outpatient (CLI) | payer BC, SELFPAY ==
--- NOTE | ~2024-03-22 | MMUS_ITS ---
EXAMINATION: MM diagnostic alvarado LT w sheila, US breast LT limited HISTORY: Follow-up left breast mass TECHNIQUE: Additional 3-D tomosynthesis images of the left breast were performed and synthetic 2-D im ages were generated. CAD analysis was submitted and interpreted. High resolution Limited left breast ultrasound was performed. COMPARISON: Comparison to multiple prior studies sequentially, with oldest reviewed study dated 12/23. BREAST PARENCHYMAL COMPOSITION: Not dense: There are scattered areas of fibroglandular density. FINDINGS: MAMMOGRAPHIC FINDINGS: There is a low-density mass with central lucency in the upper outer quadrant of the left breast, cons istent with a benign intramammary lymph node. No suspicious masses, calcifications or architectural d istortion to suggest malignancy. ULTRASOUND: Limited left breast ultrasound: Normal heterogeneous echotexture without focal mass. IMPRESSION: 1. No evidence for malignancy in the left breast. 2. Routine yearly screening mammogram and regular clinical breast examination are recommended. BI-RADS Category 2: Benign finding(s). Reviewed, dictated and finalized at location B. DYER IMPRESSION: 1. No evidence for malignancy in the left breast. 2. Routine yearly screening mammogram and regular clinical breast examination a re recommended. BI-RADS Category 2: Benign finding(s).
== END 2024-03-22 13:09 | disposition home or self-care (01) ==
LOC: ANHIMG 13:10
PROVIDERS: PCP Family Medicine; Visit Provider Obstetrics & Gynecology
DX: R92.8 Other abnormal and inconclusive findings on diagnostic imaging of breast (principal)
CPT/HCPCS: 76642; 77061; 77065; G0279

== ENCOUNTER 2025-03-15 13:16 | Outpatient (CLI) | payer MEDICARE, BC, SELFPAY ==
--- NOTE | ~2025-03-15 | MM_ITS ---
EXAMINATION: MM screening alvarado BI w sheila HISTORY: Screening. TECHNIQUE: Craniocaudal and mediolateral oblique 3-D tomosynthesis images were obtained and synthetic 2-D images were generated. CAD analysis was submitted and interpreted. COMPARISON: 2023 and 2022. BREAST PARENCHYMAL COMPOSITION: Not Dense: There are scattered areas of fibroglandular FINDINGS: No suspicious masses are seen. There are no suspicious calcifications. No unexplained architectural distortion is seen. There are no skin or nipple abnormalities identified. There is no adenopathy seen on the images submitted. IMPRESSION: No mammographic evidence to suggest malignancy is seen. The patient may return to screening mammography as per ACR guidelines. BI-RADS 1 - Negative. Reviewed, dictated and finalized at location C. R AUTOMATIC
== END 2025-03-15 13:17 | disposition home or self-care (01) ==
PROVIDERS: PCP Student in an Organized Health Care Education/Training Program; Visit Provider Obstetrics & Gynecology
DX: Z12.31 Encounter for screening mammogram for malignant neoplasm of breast (principal)
CPT/HCPCS: 77063; 77067